=== PATIENT | male | born 1945 ===

== ENCOUNTER 2020-09-14 18:13 | Inpatient (IN) | payer OTHER ==
[~2020-09-14] VITALS: Ht 193 cm; Wt 131.9 kg
--- NOTE | 2020-09-14 20:30 | NUR ---
Tellylawanda transferred her from [facility]- dx pneumonia, Pleasant, VSS, requesting o2-- did put on 2L/nc at this time- Ashubarbara FERNANDEZ aware of admission. Offered some food to pt - states just water is fine for now- no orders on pt
[2020-09-14] MEDS ORDERED: NEURONTIN300 MG/CAP PO (20:59)
[2020-09-14] MEDS ORDERED: DESYREL 100MG100 MG PO ×2 (20:59→21:00)
[2020-09-14] MEDS ORDERED: VIAGRA100 M1 (21:02)
[2020-09-14] MEDS ORDERED: LIPITOR 40MG TA40 MG PO (21:02)
[2020-09-14] MEDS ORDERED: EFFEXOR-XR150 MG PO (21:03)
[2020-09-14] MEDS ORDERED: GLUCOTROL10 MG PO (21:04)
[2020-09-14] MEDS ORDERED: NESINA25 PO (21:04)
[2020-09-14] MEDS ORDERED: ELIQUIS 5MG PO (21:06)
[2020-09-14] MEDS ORDERED: 00186-0372-20 IH (21:07)
[2020-09-14] MEDS ORDERED: SPIRIVA RE2.5 MCG/Ac IH (21:08)
[2020-09-14] MEDS ORDERED: PROAIR HFA0.09 MG/AC IH (21:09)
[2020-09-14] MEDS ORDERED: MOTRIN 400400 MG/TAB PO (21:10)
[2020-09-14 21:21] VITALS: BP 134/90; PULSE 61; TEMP 98.2
--- NOTE | 2020-09-14 21:30 | NUR ---
Pt wondering about his night meds- still no orders for wesley-- Margaret aware- states she is working on his orders-
--- NOTE | 2020-09-14 22:30 | NUR ---
Did get order for Tele -- put on patient, some antiobiotic orders also-- pt requesting resp tx-- will call resp therapy- no home meds orders yet.
--- NOTE | 2020-09-14 23:00 | NUR ---
Pt upset about his night meds-- Margaret aware- states she needs to see him before she orders them--will try to be up to see him by midnight. Pt refusing all other orders until Margaret sees him tonight-
[2020-09-14] MEDS ORDERED: 00186-0370-20 IH (23:38)
[2020-09-14] MEDS ORDERED: VITAMIN D 400400 IU PO (23:39)
--- NOTE | 2020-09-14 23:55 | NUR ---
Margaret FERNANDEZ here to see patient.
[2020-09-15] VITALS (8 sets, daily range): BP systolic 112–144; BP diastolic 54–79; PULSE 60–94; TEMP 97.6–98.6
--- NOTE | 2020-09-15 06:06 | NUR ---
Did get into the bed around 0130 last night- has been resting since,, states did have a headache but when I went in to give him the Ultram-he was sleeping soundly{states Tylenol does nothing } o2 at 2L/nc with sats 98-100%. Did get all the urine specimens- sputum specimens last night-
[2020-09-15 06:14] LABS: COLLECTION METHOD CLEAN CATCH
[2020-09-15 06:19] LABS: PH 5 (5-8); SQUAMOUS EPITHELIAL 0-2 /hpf; URINE APPEARANCE Clear; URINE BACTERIA None Seen /hpf; URINE BILIRUBIN Negative (NEGATIVE); URINE BLOOD 2+ (NEGATIVE); URINE COLOR Yellow; URINE GLUCOSE 3+ (NEGATIVE); URINE KETONE Negative (NEGATIVE); URINE LEUKOCYTE ESTERASE Negative (NEGATIVE); URINE NITRATE Negative (NEGATIVE); URINE PROTEIN(semi-quant) Negative (NEGATIVE)
--- NOTE | 2020-09-15 08:20 | NUR ---
Shift assessment complete. Pt assisted to restroom SBA w/cane and back to bed. Some urinary incontinence on way into bathroom, pt reports urgency. Initially denied pain but now reports headache at base of skull 05/26. Breathing labored upon returning to bed from restroom, pt denies SOA. O2 sats 97% on RA. Lungs coarse to auscultation and pt w/productive cough. Denies other needs at this time. Continuing to monitor.
[2020-09-15 10:55] LABS: BASO % 0.2 % (0.0-2.0); CALCIUM 8.6 mg/dL (8.4-10.2); CREATININE, serum 1.08 (0.66-1.25); EOS % 0.1 % (0-4.0); GRAN # 13.6 (1.4-6.5); GRAN % 84.8 % (42.2-75.2); HEMATOCRIT 39.3 % (42.0-52.0); HEMOGLOBIN 12.9 g/dl (13.5-18.0); LYMPH # 1.2 (1.2-3.4); LYMPH % 7.5 % (20.0-51.0); MEAN CELL VOLUME 95 fl (80.0-100.0); MEAN CORPUSCULAR HEMOGLOBIN 31 pg (27.0-31.0); MEAN CORPUSCULAR HGB CONC 33 g/dl (33.0-37.0); MEAN PLATELET VOLUME 10.8 fl (7.4-10.4); MONO # 1.1 (0.1-0.6); MONO % 6.7 % (1.7-9.3); PLATELET COUNT 204 K/mm3 (130-400); POTASSIUM 4.3 mmol/L (3.4-5.0); RED BLOOD COUNT 4.14 M/mm3 (4.20-5.60); REDCELL DISTRIBUTION WIDTH-CV 12.7 % (11.5-14.5)
--- NOTE | 2020-09-15 11:15 | NUR ---
Sw met with the pt who stated his preference to return back to his half-way home at [facility] in [place], [place]. The pt next of Kin is his sister, Blanka Rose (ph# [phone]). The pt PCP is Ruslan Mcgill and gets [facility] from [facility] or sometimes [facility]. The pt has never used HH services before. The pt states he has DPOA-HC. No other needs stated at this time. Sw to await further recommendations and follow up as needed. D/C: Back to half-way home.
--- NOTE | 2020-09-15 11:21 | NUR ---
notified pt refusing prednisone due to having "issues with it in the past."
--- NOTE | 2020-09-15 13:12 | NUR ---
Soccer Commentator offered prayer and support with patient.
--- NOTE | 2020-09-15 20:30 | NUR ---
Initial shift assessment done- states has a slight headache--will give tramadol as ordered, Tele on, IV fluids of NS at 75cc/hr, has been sitting up in W/C most of the day-- now back in bed. Alert/oriented, [place], pleasant. Understands to call for assistance- bed alarm on. Call light in reach.
[2020-09-16 03:27] VITALS: BP 138/59; PULSE 66; TEMP 98.6
--- NOTE | 2020-09-16 06:37 | NUR ---
Quiet night-- Up to bathroom with assist x2-- slept most of the night- o2 at 2L/nc-VSS, No SOB
--- NOTE | 2020-09-16 06:40 | NUR ---
Report received from QUEENIE Blakely. Pt resting in bed, reports pain in neck due to "sleeping on it wrong." Tramadol given per orders and warm blanket rolled up behind neck. Pt denies other needs at this time. Call light in reach.
[2020-09-16 08:00] VITALS: BP 132/68; PULSE 70; TEMP 98.5
--- NOTE | 2020-09-16 08:20 | NUR ---
Shift assessment complete. Pt given moist heat pack to place on neck per verbal order from Jie KISER. After about 20 minutes, heat pack removed and lidocaine patch applied per orders. Pt reports some relief after this. Continues to have productive cough and dyspnea w/exertion. Lungs diminished to auscultation. Denies other needs at this time. Call light in reach.
[2020-09-16 08:36] LABS: BASO % 0.2 % (0.0-2.0); EOS # 0.1 (0.0-0.7); EOS % 0.9 % (0-4.0); GRAN # 10.6 (1.4-6.5); GRAN % 81.1 % (42.2-75.2); HEMATOCRIT 40.6 % (42.0-52.0); HEMOGLOBIN 12.8 g/dl (13.5-18.0); LYMPH # 1.3 (1.2-3.4); LYMPH % 9.9 % (20.0-51.0); MEAN CELL VOLUME 96 fl (80.0-100.0); MEAN CORPUSCULAR HEMOGLOBIN 30 pg (27.0-31.0); MEAN CORPUSCULAR HGB CONC 32 g/dl (33.0-37.0); MEAN PLATELET VOLUME 10.8 fl (7.4-10.4); MONO % 7.4 % (1.7-9.3); PLATELET COUNT 229 K/mm3 (130-400); RED BLOOD COUNT 4.21 M/mm3 (4.20-5.60); REDCELL DISTRIBUTION WIDTH-CV 12.5 % (11.5-14.5)
[2020-09-16 08:47] LABS: CALCIUM 8.9 mg/dL (8.4-10.2); CREATININE, serum 0.94 (0.66-1.25); POTASSIUM 4.4 mmol/L (3.4-5.0)
[2020-09-16 12:30] VITALS: BP 131/75; PULSE 64; TEMP 98.5
[2020-09-16 15:32] VITALS: BP 121/49; PULSE 62; TEMP 97.7
--- NOTE | 2020-09-16 21:06 | NUR ---
ALERT AND OX4. HAS BEEN BATTLING HIGH BLOOD SUGARS TODAY. RECHECK OF SUGAR AT 8PM REPORTED TO BLANCA OF 283 AND CHECK AT 9PM 253. PT DENIES ANY SYMPTOMS. ASSESSMENT AND PLAN OF CARE DISCUSSED. PM MEDS GIVEN. CALL LIGHT WI REACH. NEEDS MET. REPORTS HEADACHE TYL GIVEN.
[2020-09-16 21:09] VITALS: BP 126/44; PULSE 60; TEMP 97.7
--- NOTE | 2020-09-16 22:37 | NUR ---
REPORT BS OF 253 TO BLANCA, ORDERING Q 4 BS AND HIGH DOSE SLIDING SCALE.
[2020-09-17 00:53] VITALS: BP 138/76; PULSE 78; TEMP 98.7
[2020-09-17 04:23] VITALS: BP 148/81; PULSE 88; TEMP 97.8
--- NOTE | 2020-09-17 04:52 | NUR ---
RESTED THROUGH THE NIGHT WITHOUT INCIDENT. BLOOD SUGARS IMPROVING. NEED MET.
[2020-09-17 05:46] LABS: BASO % 0.2 % (0.0-2.0); EOS # 0.1 (0.0-0.7); GRAN # 9.5 (1.4-6.5); GRAN % 78.1 % (42.2-75.2); HEMATOCRIT 39.2 % (42.0-52.0); HEMOGLOBIN 12.6 g/dl (13.5-18.0); LYMPH # 1.6 (1.2-3.4); MEAN CELL VOLUME 96 fl (80.0-100.0); MEAN CORPUSCULAR HEMOGLOBIN 31 pg (27.0-31.0); MEAN CORPUSCULAR HGB CONC 32 g/dl (33.0-37.0); MEAN PLATELET VOLUME 10.5 fl (7.4-10.4); MONO # 0.9 (0.1-0.6); MONO % 7.4 % (1.7-9.3); PLATELET COUNT 233 K/mm3 (130-400); RED BLOOD COUNT 4.08 M/mm3 (4.20-5.60); REDCELL DISTRIBUTION WIDTH-CV 12.4 % (11.5-14.5)
[2020-09-17 05:59] LABS: CALCIUM 9.3 mg/dL (8.4-10.2); CREATININE, serum 0.95 (0.66-1.25); POTASSIUM 4.1 mmol/L (3.4-5.0)
[2020-09-17 08:47] VITALS: BP 123/67; PULSE 61; TEMP 97.6
--- NOTE | 2020-09-17 09:39 | NUR ---
Scheduled medications given. Shift assessment preformed. Patient C/O neck pain caused by "sleeping on it wrong". Rates it a 07/26. Lidocain patch applied. PRN flexeril given. Patient A&O. VSS. Patient denies any further pain, discomfort, or further needs at this time. Call light in reach.
[2020-09-17 11:15] VITALS: BP 135/68; PULSE 67; TEMP 98.3
[2020-09-17] MEDS ORDERED: OMNICEF 300MG300 MG PO (12:25)
[2020-09-17] MEDS ORDERED: FREESTYLE PREC1 EAC5 MC (12:26)
[2020-09-17] MEDS ORDERED: LANCETS MC (12:27)
[2020-09-17] MEDS ORDERED: INSULIN PEN NE1 EAC1 MC (12:28)
[2020-09-17] MEDS ORDERED: GLUCOSE TEST ST1 DEV MC (12:28)
[2020-09-17] MEDS ORDERED: BD ALCOHOL1 SWA TD (12:29)
[2020-09-17] MEDS ORDERED: LEVEMIR FLEX100 U/ML SQ (12:31)
--- NOTE | 2020-09-17 15:02 | NUR ---
The patient is ready to d/c today. The PA notified SOBEIDA that the patient is going to be started on insulin. SOBEIDA followed up with the patient to review d/c plan. The patient states that he plans on returning back to his apartment in [place]. He states that he lives in a [place]. The patient reports that his car is at his sister's, Blanka, in [facility]. He will need a ride home. SW inquired about his sister transporting him home. The patient states that she probably could. He then contacted his sister, Blanka. Blanka reports that she can drive the patient's car here and pick him up. She states that she will be here around [phone]. SOBEIDA notified the patient's RN. The patient reports that he has had to inject himself with insulin in the past and feels comfortable doing it again. He had no other questions for SOBEIAD. The patient is to discharge back home today, 09/17. No additional needs at this time.
[2020-09-17 16:01] VITALS: BP 111/68; PULSE 66; TEMP 98.1
--- NOTE | 2020-09-17 17:24 | NUR ---
Patient deemed fit for discharge. Discharge education/instructions given. IV DC'd catheter intact, no signs of phlebitis. VSS. Patient C/O of 4/10 aching pain in his neck. Moist heat applied. Patient denies any further question/concerns. Scheduled meds given. Patient escorted from the building by via stefani staff via wheelchair.
== END 2020-09-17 17:31 | disposition home or self-care (01) | DRG 871 ==
LOC: MEDICAL 18:13
PROVIDERS: Nurse Practitioner Family; ADMIT Student in an Organized Health Care Education/Training Program
DX: A41.9 Sepsis, unspecified organism (principal); J18.9 Pneumonia, unspecified organism; J44.1 Chronic obstructive pulmonary disease with (acute) exacerbation; J44.0 Chronic obstructive pulmonary disease with (acute) lower respiratory infection; N17.9 Acute kidney failure, unspecified; I50.40 Unspecified combined systolic (congestive) and diastolic (congestive) heart failure; G47.33 Obstructive sleep apnea (adult) (pediatric); F32.9 Major depressive disorder, single episode, unspecified; I48.91 Unspecified atrial fibrillation; E78.5 Hyperlipidemia, unspecified; M62.838 Other muscle spasm; E11.40 Type 2 diabetes mellitus with diabetic neuropathy, unspecified; E66.9 Obesity, unspecified; Z85.46 Personal history of malignant neoplasm of prostate; Z95.0 Presence of cardiac pacemaker; Z68.34 Body mass index [BMI] 34.0-34.9, adult; Z87.891 Personal history of nicotine dependence
CPT/HCPCS: 99223-AI; 99233-AI; 99239; J0696; J1815; J7030; J7512